=== PATIENT | female | born 1940 | race American Indian/Alaskan Native ===

== ENCOUNTER 2019-02-10 09:56 | Inpatient (IN) | payer MEDICARE, OTHER ==
[2019-02-10] MEDS ORDERED: Ondansetron 4 MG/2 ML SDV IVPUSH PRN (15:38)
[2019-02-10] MEDS ORDERED: Albuterol 0.083% 2.5 MG/3 ML Neb Soln NEB PRN (15:43)
--- NOTE | 2019-02-10 15:57 | PCM.HP ---
H&P History of Present Illness - General Date of Service: 02/10/19 Admit Problem/Dx: Admission Diagnosis/Problem Admission Diagnosis/Problem Debility - History of Present Illness Initial Comments - Free Text/Narative: Mrs. Winchester is a 78-year-old female with past medical history significant for chronic obstructive pulmonary disease on 2 L NC at baseline, chronic hypoxic respiratory failure, chronic tobacco abuse, history of hypertension, cerebral aneurysmal repair and history of GI bleed, presented to [facility] on with acute encephalopathic state with underlying acute hypoxic and hypercapnic respiratory failure and acute COPD exacerbation with mucus plugging. Patient was initially in respiratory failure requiring intubation. She is extubated on 02/06/2019. Blood Cultures were negative. Sputum cultures were positive for stenotrophomonas maltophilia, and respiratory viral panel was positive for parainfluenza 3. Patient had CTA of the chest on admission that showed no pulmonary embolism, it showed emphysema, large regional mucus plugging in the right lower lobe bronchus extending into the bronchials in the right lower lobe, mild nodular infiltrate in the right lower lobe with small pleural effusion, focal region of bronchiectasis in the lungs, biapical scarring. CT humerus showed comminuted multipart fracture of the proximal right humerus, loose bodies in the joint but no evidence of dislocation, small shoulder joint effusion, with potential superimposed hemarthrosis, no separate hematoma fluid collection, no other fractures. She was seen by orthopedics, and continuation of sling and removal of sling few times per day for elbow ROM with plan for telemed visit in 2 weeks. On interview, patient only complained that is at her baseline. She said that she has pain in her right arm if she moved a certain way but usually it doesn't hurt. Right Arm Pain Score (Numeric/FACES): 6 - Related Data Allergies/Adverse Reactions: Allergies Allergy/AdvReac Type Severity Reaction Status Date / Time No Known Allergies Allergy Verified 02/10/19 11:42 Home Medications: Home Meds Albuterol Sulfate 2.5 mg NEB Q4H PRN 02/10/19 [History] Albuterol/Ipratropium [DuoNeb 3.0-0.5 MG/3 ML] 3 ml NEB TID 02/10/19 [History] Alendronate Sodium [Fosamax] 70 mg PO WEEKLY 02/10/19 [History] Amoxicillin/Clavulanate K [Augmentin 500-125 MG] 1 tab PO BID 02/10/19 [History] Budesonide [Pulmicort] 2 ml NEB BID 02/10/19 [History] Calcium Carbonate/Vitamin D3 [Calcium 250+D] 1 tab PO DAILY 02/10/19 [History] Losartan [Cozaar] 50 mg PO DAILY 02/10/19 [History] Megestrol [Megace] 40 mg PO QID 02/10/19 [History] Melatonin 6 mg PO BEDTIME PRN 02/10/19 [History] Meloxicam [Mobic] 15 mg PO DAILY 02/10/19 [History] Multivit-Min/FA/Lycopene/Lut [Centrum Silver Tablet] 1 tab PO DAILY 02/10/19 [ History] Oxybutynin 5 mg PO TID 02/10/19 [History] Pantoprazole Sodium [Protonix] 40 mg PO DAILY 02/10/19 [History] Simethicone 80 mg PO TID PRN 02/10/19 [History] amLODIPine [Norvasc] 5 mg PO DAILY 02/10/19 [History] Past Medical History Cardiovascular History: Reports: Hypertension Respiratory History: Reports: COPD Gastrointestinal History: Reports: GERD Musculoskeletal History: Reports: Arthritis, Osteoarthritis Neurological History: Reports: Other (See Below) Other Neuro History: aneurysm Hematologic History: Reports: Anemia, Blood Transfusion(s) - Past Surgical History HEENT Surgical History: Reports: None Respiratory Surgical History: Reports: None GI Surgical History: Reports: Cholecystectomy Musculoskeletal Surgical History: Reports: Hip Replacement Other Musculoskeletal Surgeries/Procedures:: left hip replacement Social & Family History - Family History Family Medical History: Noncontributory - Tobacco Use Smoking Status *Q: Current Every Day Smoker Years of Tobacco use: 50 Packs/Tins Daily: 1 Second Hand Smoke Exposure: Yes - Caffeine Use Caffeine Use: Reports: Coffee - Recreational Drug Use Recreational Drug Use: No H&P Review of Systems - Review of Systems: Review Of Systems: ROS reveals no pertinent complaints other than HPI. Exam - Exam Exam: See Below - Vital Signs Weight: 34.019 kg - Exam Quality Assessment: Supplemental Oxygen (2L) General: Alert, Oriented Lungs: Clear to Auscultation, Normal Respiratory Effort Cardiovascular: Regular Rate, Regular Rhythm GI/Abdominal Exam: Normal Bowel Sounds, Soft Extremities: No Pedal Edema, Other (R arm in sling) Skin: Warm, Dry, Intact Neuro Extensive - Mental Status: Alert, Oriented x3, Normal Mood/Affect Psychiatric: Alert, Normal Affect Problem List Initiated/Reviewed/Updated: Yes Orders Last 24hrs: Active Orders 24 hr Category Date Time Status Patient Status [ADT] Routine ADT 02/10/19 15:38 Ordered Antiembolic Devices [RC] PER UNIT ROUTINE Care 02/10/19 15:43 Ordered May Shower [RC] ASDIRECTED Care 02/10/19 15:38 Ordered Oxygen Therapy [RC] PRN Care 02/10/19 15:38 Ordered Up With Assistance [RC] ASDIRECTED Care 02/10/19 15:38 Ordered VTE/DVT Education [RC] PER UNIT ROUTINE Care 02/10/19 15:38 Ordered Vital Signs [RC] QSHIFT Care 02/10/19 15:38 Ordered Regular Diet [DIET] Diet 02/10/19 Dinner Ordered CBC WITH AUTO DIFF [HEME] Routine Lab 02/10/19 15:38 Ordered COMPREHENSIVE METABOLIC PN,CMP [CHEM] Routine Lab 02/10/19 15:38 Ordered MAGNESIUM [CHEM] Routine Lab 02/10/19 15:38 Ordered PHOSPHORUS [CHEM] Routine Lab 02/10/19 15:38 Ordered Albuterol Sulfate Med 02/10/19 15:43 Ordered 2.5 mg NEB Q4H PRN Albuterol/Ipratropium [DuoNeb 3.0-0.5 MG/3 ML] Med 02/10/19 21:00 Ordered 3 ml NEB TID Alendronate Sodium [Fosamax] Med 02/10/19 15:45 Ordered 70 mg PO WEEKLY Amoxicillin/Clavulanate K [Augmentin 500 MG\125 MG] Med 02/10/19 21:00 Ordered 1 tab PO BID Budesonide [Pulmicort] Med 02/10/19 21:00 Ordered 2 ml NEB BID Calcium Carbonate/Vitamin D3 [Calcium 250+D] Med 02/11/19 09:00 Ordered 1 tab PO DAILY Heparin Sodium Med 02/10/19 22:00 Ordered 5,000 units SUBCUT Q8HR Losartan [Cozaar] Med 02/11/19 09:00 Ordered 50 mg PO DAILY Megestrol [Megace] Med 02/10/19 17:00 Ordered 40 mg PO QID Melatonin Med 02/10/19 15:43 Ordered 6 mg PO BEDTIME PRN Meloxicam [Mobic] Med 02/11/19 09:00 Ordered 15 mg PO DAILY Multivit-Min/FA/Lycopene/Lut [Centrum Silver Tablet] Med 02/11/19 09:00 Ordered 1 tab PO DAILY Ondansetron [Zofran] Med 02/10/19 15:38 Ordered 4 mg IVPUSH Q4H PRN Oxybutynin Med 02/10/19 21:00 Ordered 5 mg PO TID Pantoprazole [ProTONIX] Med 02/11/19 09:00 Ordered 40 mg PO DAILY Simethicone Med 02/10/19 15:43 Ordered 80 mg PO TID PRN amLODIPine [Norvasc] Med 02/11/19 09:00 Ordered 5 mg PO DAILY oxyCODONE Med 02/10/19 15:38 Ordered 5 mg PO Q4H PRN Sequential Compression Device [OM.PC] Per Unit Routine Oth 02/10/19 15:41 Ordered Resuscitation Status Routine Resus Stat 02/10/19 15:38 Ordered Assessment/Plan Comment:: Mrs. Winchester is a 78-year-old female with past medical history significant for chronic obstructive pulmonary disease on 2 L NC at baseline, chronic hypoxic respiratory failure, chronic tobacco abuse, history of hypertension, cerebral aneurysmal repair and history of GI bleed who presented to Swing bed due to debility for strengthening. Debility PT/OT COPD Chronically on 2 L nasal cannula Continue home inhalers Continue Augmentin for 7 days Hypertension Continue home medications Tobacco abuse Provide patient with nicotine patch Right humeral fracture Continue with sling She should come out of sling a few times per day for elbow ROM Patient needs to follow up with orthopedics over telemedicine 2 weeks from Continue Tylenol Add oxycodone for severe pain DVT prophylaxis sc heparin
[2019-02-10] MEDS: Acetaminophen 325 MG Tab PO PRN ×2 (16:49→20:26)
[2019-02-10 17:13] LABS: ANION GAP 13.5; CHLORIDE,CL 90 mmol/L (101-111); SODIUM,NA 133 mmol/L (135-145)
[2019-02-10] MEDS: oxyCODONE 5 MG Tab PO PRN (19:50)
[2019-02-10] MEDS: Budesonide 0.5 MG/2 ML Neb Susp NEB SCH (20:26)
[2019-02-10] MEDS: Amoxicillin/Clavulanate K 500-125 MG Tab PO SCH (20:26)
[2019-02-10] MEDS: Melatonin 3 MG Tab PO PRN (20:27)
[2019-02-10] MEDS: Megestrol 40 MG Tab PO SCH (20:28)
[2019-02-10] MEDS: Oxybutynin 5 MG Tab PO SCH (20:28)
[2019-02-10] MEDS: Albuterol/Ipratropium 3.0-0.5 MG/3 ML Neb Soln NEB SCH (21:00)
[2019-02-10] MEDS: Heparin Sodium 5,000 Units/ML Vial SUBCUT SCH (22:28)
[2019-02-11] MEDS: Heparin Sodium 5,000 Units/ML Vial SUBCUT SCH ×3 (05:22→22:17)
[2019-02-11] MEDS: Pantoprazole 40 MG Tab.CR PO SCH (05:26)
[2019-02-11] MEDS: Albuterol/Ipratropium 3.0-0.5 MG/3 ML Neb Soln NEB SCH ×3 (07:20→22:17)
[2019-02-11] MEDS: Budesonide 0.5 MG/2 ML Neb Susp NEB SCH ×3 (07:22→22:17)
[2019-02-11] MEDS: Amoxicillin/Clavulanate K 500-125 MG Tab PO SCH ×2 (08:38→22:13)
[2019-02-11] MEDS: Losartan 50 MG Tab PO SCH (08:39)
[2019-02-11] MEDS: Oxybutynin 5 MG Tab PO SCH ×3 (08:39→22:12)
[2019-02-11] MEDS: amLODIPine 5 MG Tab PO SCH (08:40)
[2019-02-11] MEDS: Acetaminophen 325 MG Tab PO PRN ×2 (08:40→23:39)
[2019-02-11] MEDS: Megestrol 40 MG Tab PO SCH ×4 (08:42→22:12)
[2019-02-11] MEDS: Nicotine 14 MG/24 Hr Patch TRDERM SCH (08:43)
[2019-02-11] MEDS: Check NICOTINE Patch TRDERM SCH (08:45)
[2019-02-11] MEDS ORDERED: Calcium Carbonate/Vitamin D3 1250 MG-200 Unit Tab PO SCH (09:00)
[2019-02-11] MEDS: Calcium Carbonate/Vitamin D3 1250 MG-200 Unit Tab PO SCH (12:52)
[2019-02-11] MEDS: Melatonin 3 MG Tab PO PRN (23:40)
[2019-02-12] MEDS: Heparin Sodium 5,000 Units/ML Vial SUBCUT SCH (06:28)
[2019-02-12] MEDS: Pantoprazole 40 MG Tab.CR PO SCH (06:29)
--- NOTE | 2019-02-12 08:59 | PCM.PN ---
- General Info Date of Service: 02/12/19 Admission Dx/Problem (Free Text): Admission Diagnosis/Problem Admission Diagnosis/Problem Debility Subjective Update: The patient developed urinary retention overnight. She was scanned multiple times, and urine residual was over 800. She was straight cathetered X1. Patient said that she went this morning, and urinated a significant amount. She is also on oxybutynin. - Review of Systems General: Reports: No Symptoms Pulmonary: Reports: No Symptoms Cardiovascular: Reports: No Symptoms Gastrointestinal: Reports: No Symptoms - Patient Data Vitals - Most Recent: Last Vital Signs Temp 36.9 C 02/12/19 07:00 Pulse 94 02/12/19 07:00 Resp 20 02/12/19 07:00 BP 193/84 H 02/12/19 07:00 Pulse Ox 100 02/12/19 07:00 Weight - Most Recent: 34.019 kg I&O - Last 24 Hours: Intake & Output 02/11/19 02/12/19 02/12/19 22:59 06:59 14:59 Intake Total 100 Output Total 750 Balance 100 -750 Med Orders - Current: Current Medications Acetaminophen (Tylenol) 650 mg PO Q4H PRN PRN Reason: Pain Last Admin: 02/11/19 23:39 Dose: 650 mg Albuterol (Proventil Neb Soln) 2.5 mg NEB Q4H PRN PRN Reason: Wheezing Albuterol/Ipratropium (Duoneb 3.0-0.5 Mg/3 Ml) 3 ml NEB TIDRT [facility] Last Admin: 02/11/19 22:17 Dose: 3 ml Amlodipine Besylate (Norvasc) 5 mg PO DAILY [facility] Last Admin: 02/11/19 08:40 Dose: 5 mg Amoxicillin/Clavulanate Potassium (Augmentin 500 Mg\125 Mg) 1 tab PO BID [facility] Stop: 02/17/19 09:01 Last Admin: 02/11/19 22:13 Dose: 1 tab Budesonide (Pulmicort) 0.5 mg NEB BID [facility] Last Admin: 02/11/19 22:17 Dose: 0.5 mg Calcium Carbonate (Calcium Carbonate/Vitamin D 1250 Mg-200 Unit) 1 tab PO DAILY [facility] Last Admin: 02/11/19 12:52 Dose: Not Given Heparin Sodium (Porcine) (Heparin Sodium) 5,000 units SUBCUT Q8HR [facility] Last Admin: 02/12/19 06:28 Dose: Not Given Losartan Potassium (Cozaar) 50 mg PO DAILY [facility] Last Admin: 02/11/19 08:39 Dose: 50 mg Megestrol Acetate (Megace) 40 mg PO QID [facility] Last Admin: 02/11/19 22:12 Dose: 40 mg Melatonin (Melatonin) 6 mg PO BEDTIME PRN PRN Reason: Sleep Last Admin: 02/11/19 23:40 Dose: 6 mg Miscellaneous Information (Check Patch) 1 ea TRDERM DAILY [facility] Last Admin: 02/11/19 08:45 Dose: 1 ea Nicotine (Habitrol) 14 mg TRDERM DAILY [facility] Last Admin: 02/11/19 08:43 Dose: 14 mg Alendronate Sodium [ (Fosamax] 70mg) 70 mg PO Q7D [facility] Ondansetron HCl (Zofran) 4 mg IVPUSH Q4H PRN PRN Reason: Nausea/Vomiting Oxycodone HCl (Oxycodone) 5 mg PO Q4H PRN PRN Reason: Pain (moderate 4-6) Last Admin: 02/10/19 19:50 Dose: 5 mg Pantoprazole Sodium (Protonix) 40 mg PO ACBREAKFAST [facility] Last Admin: 02/12/19 06:29 Dose: 40 mg Patient's Own MedicationMobic 15 Mg 1 each PO DAILY [facility] Simethicone (Simethicone) 80 mg PO TID PRN PRN Reason: Gas Discontinued Medications Calcium Carbonate (Calcium Carbonate/Vitamin D 1250 Mg-200 Unit) 1 tab PO DAILY [facility] Last Admin: 02/11/19 08:38 Dose: 1 tab Oxybutynin Chloride (Oxybutynin) 5 mg PO TID [facility] Last Admin: 02/11/19 22:12 Dose: 5 mg - Exam General: Alert, Oriented Lungs: Clear to Auscultation, Normal Respiratory Effort GI/Abdominal Exam: Normal Bowel Sounds, Soft Extremities: Normal Inspection Skin: Warm, Dry, Intact Neurological: No New Focal Deficit Psy/Mental Status: Alert, Normal Affect, Normal Mood - Problem List Review Problem List Initiated/Reviewed/Updated: Yes - My Orders Last 24 Hours: My Active Orders 02/11/19 09:00 Calcium Carbonate/Vitamin D3 [Calcium Carbonate/Vitamin D 1250 MG-200 Unit] 1 tab PO DAILY Check Patch 1 ea TRDERM DAILY Losartan [Cozaar] 50 mg PO DAILY Nicotine [Habitrol] 14 mg TRDERM DAILY amLODIPine [Norvasc] 5 mg PO DAILY 02/11/19 15:00 Dietary Supplements [RC] DAILY 02/11/19 23:32 Urinary Catheter Assessment [RC] ASDIRECTED 02/12/19 08:50 Communication Order [RC] DAILY 02/12/19 09:00 Patient's Own Medication [Ptom] 1 each PO DAILY 02/12/19 23:45 Insert Urinary Catheter [OM.PC] Q24H - Plan Plan:: Mrs. Winchester is a 78-year-old female with past medical history significant for chronic obstructive pulmonary disease on 2 L NC at baseline, chronic hypoxic respiratory failure, chronic tobacco abuse, history of hypertension, cerebral aneurysmal repair and history of GI bleed who presented to Swing bed due to debility for strengthening. Debility PT/OT COPD Chronically on 2 L nasal cannula Continue home inhalers Continue Augmentin for 7 days Hypertension Continue home medications Tobacco abuse Provide patient with nicotine patch Urinary retention Will discontinue oxybutynin We'll schedule bladder scans every 6h, straight catheter if patient is over 700 mL She continues to retain urine, we'll place Guillen tomorrow Right humeral fracture Continue with sling She should come out of sling a few times per day for elbow ROM Patient needs to follow up with orthopedics over telemedicine 2 weeks from Continue Tylenol Add oxycodone for severe pain DVT prophylaxis switched to Lovenox
[2019-02-12] MEDS: Check NICOTINE Patch TRDERM SCH (09:10)
[2019-02-12] MEDS: Amoxicillin/Clavulanate K 500-125 MG Tab PO SCH ×2 (09:15→21:13)
[2019-02-12] MEDS: Calcium Carbonate/Vitamin D3 1250 MG-200 Unit Tab PO SCH (09:15)
[2019-02-12] MEDS: Losartan 50 MG Tab PO SCH (09:16)
[2019-02-12] MEDS: amLODIPine 5 MG Tab PO SCH (09:21)
[2019-02-12] MEDS: Megestrol 40 MG Tab PO SCH ×4 (09:22→21:13)
[2019-02-12] MEDS: Nicotine 14 MG/24 Hr Patch TRDERM SCH (09:22)
[2019-02-12] MEDS: Albuterol/Ipratropium 3.0-0.5 MG/3 ML Neb Soln NEB SCH ×2 (11:29→21:11)
[2019-02-12] MEDS: Budesonide 0.5 MG/2 ML Neb Susp NEB SCH ×2 (11:29→21:14)
[2019-02-12] MEDS: MOBIC 15 MG PO SCH (12:07)
[2019-02-12] MEDS: oxyCODONE 5 MG Tab PO PRN (12:09)
[2019-02-12] MEDS: Enoxaparin 40 MG/0.4 ML Syringe SUBCUT SCH (12:12)
[2019-02-12] MEDS: Melatonin 3 MG Tab PO PRN (21:22)
[2019-02-12] MEDS: Acetaminophen 325 MG Tab PO PRN (21:22)
[2019-02-13] MEDS: oxyCODONE 5 MG Tab PO PRN ×3 (02:24→20:13)
[2019-02-13] MEDS: Pantoprazole 40 MG Tab.CR PO SCH (05:51)
[2019-02-13] MEDS: Albuterol/Ipratropium 3.0-0.5 MG/3 ML Neb Soln NEB SCH ×4 (08:23→21:59)
[2019-02-13] MEDS: Budesonide 0.5 MG/2 ML Neb Susp NEB SCH ×3 (09:17→21:59)
[2019-02-13] MEDS: Calcium Carbonate/Vitamin D3 1250 MG-200 Unit Tab PO SCH (09:17)
[2019-02-13] MEDS: amLODIPine 5 MG Tab PO SCH (09:18)
[2019-02-13] MEDS: Losartan 50 MG Tab PO SCH (09:18)
[2019-02-13] MEDS: Amoxicillin/Clavulanate K 500-125 MG Tab PO SCH ×2 (09:18→21:58)
[2019-02-13] MEDS: Check NICOTINE Patch TRDERM SCH (09:19)
[2019-02-13] MEDS: Megestrol 40 MG Tab PO SCH ×4 (09:19→21:58)
[2019-02-13] MEDS: Nicotine 14 MG/24 Hr Patch TRDERM SCH (09:20)
[2019-02-13] MEDS: Enoxaparin 40 MG/0.4 ML Syringe SUBCUT SCH (09:22)
[2019-02-13] MEDS: MOBIC 15 MG PO SCH (09:24)
[2019-02-13] MEDS: Melatonin 3 MG Tab PO PRN (23:13)
[2019-02-13] MEDS: Acetaminophen 325 MG Tab PO PRN (23:18)
[2019-02-14] MEDS: Pantoprazole 40 MG Tab.CR PO SCH (07:28)
[2019-02-14] MEDS: Albuterol/Ipratropium 3.0-0.5 MG/3 ML Neb Soln NEB SCH ×3 (07:34→20:55)
[2019-02-14] MEDS: Budesonide 0.5 MG/2 ML Neb Susp NEB SCH ×2 (07:34→20:55)
[2019-02-14] MEDS: Amoxicillin/Clavulanate K 500-125 MG Tab PO SCH ×2 (09:05→20:55)
[2019-02-14] MEDS: Losartan 50 MG Tab PO SCH (09:05)
[2019-02-14] MEDS: amLODIPine 5 MG Tab PO SCH (09:06)
[2019-02-14] MEDS: Megestrol 40 MG Tab PO SCH ×4 (09:06→20:55)
[2019-02-14] MEDS: Nicotine 14 MG/24 Hr Patch TRDERM SCH (09:06)
[2019-02-14] MEDS: Calcium Carbonate/Vitamin D3 1250 MG-200 Unit Tab PO SCH (09:06)
[2019-02-14] MEDS: Enoxaparin 40 MG/0.4 ML Syringe SUBCUT SCH (09:07)
[2019-02-14] MEDS: Check NICOTINE Patch TRDERM SCH (09:16)
--- NOTE | 2019-02-14 09:42 | PCM.PN ---
- General Info Date of Service: 02/14/19 Admission Dx/Problem (Free Text): Admission Diagnosis/Problem Admission Diagnosis/Problem Debility Subjective Update: The patient was adamant about leaving the hospital today. She said that she was willing to sign herself out AMA. Discussed with patient that she would not be able to take care of herself. Patient later changed her mind. She denied any other complaints. - Review of Systems Systems Review Comment:: not obtained - Patient Data Vitals - Most Recent: Last Vital Signs Temp 36.8 C 02/14/19 08:13 Pulse 97 02/14/19 08:13 Resp 20 02/14/19 08:13 BP 138/55 L 02/14/19 09:06 Pulse Ox 93 L 02/14/19 08:13 Weight - Most Recent: 34.019 kg I&O - Last 24 Hours: Intake & Output 02/13/19 02/14/19 02/14/19 22:59 06:59 14:59 Intake Total 250 Output Total 600 650 Balance -600 -400 Med Orders - Current: Current Medications Acetaminophen (Tylenol) 650 mg PO Q4H PRN PRN Reason: Pain Last Admin: 02/13/19 23:18 Dose: 650 mg Albuterol (Proventil Neb Soln) 2.5 mg NEB Q4H PRN PRN Reason: Wheezing Albuterol/Ipratropium (Duoneb 3.0-0.5 Mg/3 Ml) 3 ml NEB TIDRT [facility] Last Admin: 02/14/19 07:34 Dose: 3 ml Amlodipine Besylate (Norvasc) 5 mg PO DAILY [facility] Last Admin: 02/14/19 09:06 Dose: 5 mg Amoxicillin/Clavulanate Potassium (Augmentin 500 Mg\125 Mg) 1 tab PO BID [facility] Stop: 02/17/19 09:01 Last Admin: 02/14/19 09:05 Dose: 1 tab Budesonide (Pulmicort) 0.5 mg NEB BID@0700,2100 [facility] Last Admin: 02/14/19 07:34 Dose: 0.5 mg Calcium Carbonate (Calcium Carbonate/Vitamin D 1250 Mg-200 Unit) 1 tab PO DAILY [facility] Last Admin: 02/14/19 09:06 Dose: 1 tab Enoxaparin Sodium (Lovenox) 40 mg SUBCUT DAILY [facility] Last Admin: 02/14/19 09:07 Dose: 40 mg Losartan Potassium (Cozaar) 50 mg PO DAILY [facility] Last Admin: 02/14/19 09:05 Dose: 50 mg Megestrol Acetate (Megace) 40 mg PO QID [facility] Last Admin: 02/14/19 09:06 Dose: 40 mg Melatonin (Melatonin) 6 mg PO BEDTIME PRN PRN Reason: Sleep Last Admin: 02/13/19 23:13 Dose: 6 mg Miscellaneous Information (Check Patch) 1 ea TRDERM DAILY [facility] Last Admin: 02/14/19 09:16 Dose: 1 ea Nicotine (Habitrol) 14 mg TRDERM DAILY [facility] Last Admin: 02/14/19 09:06 Dose: 14 mg Alendronate Sodium [ Fosamax] 70mgOwn Med 70 mg PO Q7D [facility] Ondansetron HCl (Zofran) 4 mg IVPUSH Q4H PRN PRN Reason: Nausea/Vomiting Oxycodone HCl (Oxycodone) 5 mg PO Q4H PRN PRN Reason: Pain (moderate 4-6) Last Admin: 02/13/19 20:13 Dose: 5 mg Pantoprazole Sodium (Protonix) 40 mg PO ACBREAKFAST [facility] Last Admin: 02/14/19 07:28 Dose: 40 mg Patient's Own MedicationMobic 15 Mg 1 each PO DAILY [facility] Last Admin: 02/13/19 09:24 Dose: 1 each Simethicone (Simethicone) 80 mg PO TID PRN PRN Reason: Gas Discontinued Medications Budesonide (Pulmicort) 0.5 mg NEB BID [facility] Last Admin: 02/13/19 09:26 Dose: Not Given Calcium Carbonate (Calcium Carbonate/Vitamin D 1250 Mg-200 Unit) 1 tab PO DAILY [facility] Last Admin: 02/11/19 08:38 Dose: 1 tab Heparin Sodium (Porcine) (Heparin Sodium) 5,000 units SUBCUT Q8HR [facility] Last Admin: 02/12/19 06:28 Dose: Not Given Oxybutynin Chloride (Oxybutynin) 5 mg PO TID [facility] Last Admin: 02/11/19 22:12 Dose: 5 mg - Exam General: Alert, Oriented Lungs: Clear to Auscultation, Normal Respiratory Effort Cardiovascular: Regular Rate, Regular Rhythm GI/Abdominal Exam: Normal Bowel Sounds, Soft, Non-Tender, No Abnormal Bruit Extremities: No Pedal Edema Skin: Warm, Dry, Intact Neurological: No New Focal Deficit Psy/Mental Status: Alert, Normal Affect, Normal Mood - Problem List Review Problem List Initiated/Reviewed/Updated: Yes - My Orders Last 24 Hours: My Active Orders 02/13/19 09:15 Budesonide [Pulmicort] 0.5 mg NEB BID@0700,2100 02/13/19 12:18 Urinary Catheter Assessment [RC] 08,02/13/19 12:30 Insert Guillen Catheter [Insert Urinary Catheter] [OM.PC] Q24H 02/17/19 07:00 Alendronate Sodium [Fosamax] 70 mg PO Q7D - Plan Plan:: Mrs. Winchester is a 78-year-old female with past medical history significant for chronic obstructive pulmonary disease on 2 L NC at baseline, chronic hypoxic respiratory failure, chronic tobacco abuse, history of hypertension, cerebral aneurysmal repair and history of GI bleed who presented to Swing bed due to debility for strengthening. Debility PT/OT COPD Chronically on 2 L nasal cannula Continue home inhalers Continue Augmentin for 7 days Hypertension Continue home medications Tobacco abuse Provide patient with nicotine patch Urinary retention continue Guillen care Patient will need follow-up with urology on discharge Right humeral fracture Continue with sling She should come out of sling a few times per day for elbow ROM Patient needs to follow up with orthopedics over telemedicine 2 weeks from Continue Tylenol Add oxycodone for severe pain DVT prophylaxis Lovenox
[2019-02-14] MEDS: oxyCODONE 5 MG Tab PO PRN ×2 (11:40→15:50)
[2019-02-14] MEDS: MOBIC 15 MG PO SCH (11:41)
[2019-02-14] MEDS: Acetaminophen 325 MG Tab PO PRN (14:54)
[2019-02-14] MEDS: Melatonin 3 MG Tab PO PRN (20:55)
[2019-02-15] MEDS: oxyCODONE 5 MG Tab PO PRN ×3 (01:07→18:06)
[2019-02-15] MEDS: Acetaminophen 325 MG Tab PO PRN ×2 (03:57→21:32)
[2019-02-15] MEDS: Pantoprazole 40 MG Tab.CR PO SCH (06:13)
[2019-02-15] MEDS: Albuterol/Ipratropium 3.0-0.5 MG/3 ML Neb Soln NEB SCH ×3 (07:54→21:30)
[2019-02-15] MEDS: Budesonide 0.5 MG/2 ML Neb Susp NEB SCH ×2 (07:54→21:30)
[2019-02-15] MEDS: Losartan 50 MG Tab PO SCH (08:14)
[2019-02-15] MEDS: Calcium Carbonate/Vitamin D3 1250 MG-200 Unit Tab PO SCH (08:14)
[2019-02-15] MEDS: amLODIPine 5 MG Tab PO SCH (08:15)
[2019-02-15] MEDS: Megestrol 40 MG Tab PO SCH ×4 (08:15→21:31)
[2019-02-15] MEDS: Nicotine 14 MG/24 Hr Patch TRDERM SCH (08:15)
[2019-02-15] MEDS: Enoxaparin 40 MG/0.4 ML Syringe SUBCUT SCH (08:15)
[2019-02-15] MEDS: Amoxicillin/Clavulanate K 500-125 MG Tab PO SCH ×2 (08:15→21:31)
[2019-02-15] MEDS: Check NICOTINE Patch TRDERM SCH (08:25)
[2019-02-15] MEDS: MOBIC 15 MG PO SCH (08:26)
[2019-02-15] MEDS ORDERED: Benzocaine/Cetylpyridinium/Menthol Lozenge MUCMEM PRN (11:08)
[2019-02-15] MEDS: Nicotine 21 MG/24 Hr Patch TRDERM SCH (13:15)
[2019-02-15] MEDS: Nystatin Susp 100,000 Unit/ML 5 ML UD Cup PO SCH ×3 (13:15→21:31)
[2019-02-15] MEDS: Melatonin 3 MG Tab PO PRN (21:31)
[2019-02-15] MEDS: Simethicone 80 MG Tab.Chew PO PRN (22:34)
[2019-02-16] MEDS: Pantoprazole 40 MG Tab.CR PO SCH (06:11)
[2019-02-16] MEDS: Albuterol/Ipratropium 3.0-0.5 MG/3 ML Neb Soln NEB SCH (07:13)
[2019-02-16] MEDS: Budesonide 0.5 MG/2 ML Neb Susp NEB SCH (07:13)
[2019-02-16] MEDS: Acetaminophen 325 MG Tab PO PRN (08:09)
[2019-02-16] MEDS: Enoxaparin 40 MG/0.4 ML Syringe SUBCUT SCH (08:50)
[2019-02-16] MEDS: amLODIPine 5 MG Tab PO SCH (08:50)
[2019-02-16] MEDS: Amoxicillin/Clavulanate K 500-125 MG Tab PO SCH (08:50)
[2019-02-16] MEDS: Simethicone 80 MG Tab.Chew PO PRN (08:50)
[2019-02-16] MEDS: Calcium Carbonate/Vitamin D3 1250 MG-200 Unit Tab PO SCH (08:50)
[2019-02-16] MEDS: Losartan 50 MG Tab PO SCH (08:50)
[2019-02-16] MEDS: Megestrol 40 MG Tab PO SCH ×2 (08:50→12:47)
[2019-02-16] MEDS: Nystatin Susp 100,000 Unit/ML 5 ML UD Cup PO SCH ×2 (08:51→12:49)
[2019-02-16] MEDS: Nicotine 21 MG/24 Hr Patch TRDERM SCH (08:53)
[2019-02-16] MEDS: Check NICOTINE Patch TRDERM SCH (09:50)
[2019-02-16] MEDS: MOBIC 15 MG PO SCH (09:50)
--- NOTE | 2019-02-16 13:26 | PCM.DCSUM1 ---
Discharge Summary - Hospital Course Free Text/Narrative:: Mrs. Winchester is a 78-year-old female with past medical history significant for chronic obstructive pulmonary disease on 2 L NC at baseline, chronic hypoxic respiratory failure, chronic tobacco abuse, history of hypertension, cerebral aneurysmal repair and history of GI bleed, presented to [facility] on with acute encephalopathic state with underlying acute hypoxic and hypercapnic respiratory failure and acute COPD exacerbation with mucus plugging. Patient was initially in respiratory failure requiring intubation. She is extubated on 02/06/2019. Blood Cultures were negative. Sputum cultures were positive for stenotrophomonas maltophilia, and respiratory viral panel was positive for parainfluenza 3. Patient had CTA of the chest on admission that showed no pulmonary embolism, it showed emphysema, large regional mucus plugging in the right lower lobe bronchus extending into the bronchials in the right lower lobe, mild nodular infiltrate in the right lower lobe with small pleural effusion, focal region of bronchiectasis in the lungs, biapical scarring. CT humerus showed comminuted multipart fracture of the proximal right humerus, loose bodies in the joint but no evidence of dislocation, small shoulder joint effusion, with potential superimposed hemarthrosis, no separate hematoma fluid collection, no other fractures. She was seen by orthopedics, and continuation of sling and removal of sling few times per day for elbow ROM with plan for telemed visit in 2 weeks from her discharge. she was in swing bed for deconditioning. patient was resistant to staying for therapy and despite PT/OT feeling that she was not ready to leave, she decided to leave regardless. she also developed urinary retention when she was here and she required placement of tinajero. she will need referral to urology by her PCP for voiding trial and possible removal of tinajero. she was discharged in stable condition. Diagnosis: Stroke: No - Discharge Data Discharge Date: 02/16/19 Discharge Disposition: Home, Self-Care 01 Condition: Fair - Patient Summary/Data Consults: Consultations 02/12/19 09:32 Consult to Occupational Therapy [OT Evaluation and Treatment] [CONS] Routine PT Evaluation and Treatment [CONS] Routine - Discharge Plan *PRESCRIPTION DRUG MONITORING PROGRAM REVIEWED*: No *COPY OF PRESCRIPTION DRUG MONITORING REPORT IN PATIENT MICKEY: No Home Medications: Home Meds Albuterol Sulfate 2.5 mg NEB Q4H PRN 02/10/19 [History] Albuterol/Ipratropium [DuoNeb 3.0-0.5 MG/3 ML] 3 ml NEB TID 02/10/19 [History] Alendronate Sodium [Fosamax] 70 mg PO WEEKLY 02/10/19 [History] Budesonide [Pulmicort] 2 ml NEB BID 02/10/19 [History] Calcium Carbonate/Vitamin D3 [Calcium 250+D] 1 tab PO DAILY 02/10/19 [History] Losartan [Cozaar] 50 mg PO DAILY 02/10/19 [History] Megestrol [Megace] 40 mg PO QID 02/10/19 [History] Melatonin 6 mg PO BEDTIME PRN 02/10/19 [History] Meloxicam [Mobic] 15 mg PO DAILY 02/10/19 [History] Multivit-Min/FA/Lycopene/Lut [Centrum Silver Tablet] 1 tab PO DAILY 02/10/19 [ History] Pantoprazole Sodium [Protonix] 40 mg PO DAILY 02/10/19 [History] Simethicone 80 mg PO TID PRN 02/10/19 [History] amLODIPine [Norvasc] 5 mg PO DAILY 02/10/19 [History] Patient Handouts: Fall Prevention in the Home, Adult, [id number], Indwelling Urinary Catheter Care, Adult, [id number] - Discharge Summary/Plan Comment DC Time >30 min.: Yes - General Info Date of Service: 02/16/19 - Patient Data Vitals - Most Recent: Last Vital Signs Temp 36.5 C 02/15/19 16:19 Pulse 86 02/15/19 16:19 Resp 20 02/15/19 16:19 BP 135/51 L 02/16/19 08:50 Pulse Ox 98 02/16/19 07:14 Weight - Most Recent: 35.04 kg I&O - Last 24 hours: Intake & Output 02/15/19 02/16/19 02/16/19 22:59 06:59 14:59 Intake Total 350 250 440 Output Total 550 600 600 Balance -200 -350 -160 Med Orders - Current: Current Medications Acetaminophen (Tylenol) 650 mg PO Q4H PRN PRN Reason: Pain Last Admin: 02/16/19 08:09 Dose: 650 mg Albuterol (Proventil Neb Soln) 2.5 mg NEB Q4H PRN PRN Reason: Wheezing Albuterol/Ipratropium (Duoneb 3.0-0.5 Mg/3 Ml) 3 ml NEB TIDRT [facility] Last Admin: 02/16/19 07:13 Dose: 3 ml Amlodipine Besylate (Norvasc) 5 mg PO DAILY [facility] Last Admin: 02/16/19 08:50 Dose: 5 mg Amoxicillin/Clavulanate Potassium (Augmentin 500 Mg\125 Mg) 1 tab PO BID [facility] Stop: 02/17/19 09:01 Last Admin: 02/16/19 08:50 Dose: 1 tab Benzocaine/Menthol (Cepacol Sore Throat) 1 lozenge MUCMEM 5XDAY PRN PRN Reason: Sore Throat Budesonide (Pulmicort) 0.5 mg NEB BID@0700,2100 [facility] Last Admin: 02/16/19 07:13 Dose: 0.5 mg Calcium Carbonate (Calcium Carbonate/Vitamin D 1250 Mg-200 Unit) 1 tab PO DAILY [facility] Last Admin: 02/16/19 08:50 Dose: 1 tab Enoxaparin Sodium (Lovenox) 40 mg SUBCUT DAILY [facility] Last Admin: 02/16/19 08:50 Dose: 40 mg Losartan Potassium (Cozaar) 50 mg PO DAILY [facility] Last Admin: 02/16/19 08:50 Dose: 50 mg Megestrol Acetate (Megace) 40 mg PO QID [facility] Last Admin: 02/16/19 12:47 Dose: 40 mg Melatonin (Melatonin) 6 mg PO BEDTIME PRN PRN Reason: Sleep Last Admin: 02/15/19 21:31 Dose: 6 mg Miscellaneous Information (Check Patch) 1 ea TRDERM DAILY [facility] Last Admin: 02/16/19 09:50 Dose: 1 ea Nicotine (Habitrol) 21 mg TRDERM DAILY [facility] Last Admin: 02/16/19 08:53 Dose: 21 mg Alendronate Sodium [ Fosamax] 70mgOwn Med 70 mg PO Q7D [facility] Nystatin (Mycostatin) 5 ml PO QID [facility] Last Admin: 02/16/19 12:49 Dose: 5 ml Ondansetron HCl (Zofran) 4 mg IVPUSH Q4H PRN PRN Reason: Nausea/Vomiting Oxycodone HCl (Oxycodone) 5 mg PO Q4H PRN PRN Reason: Pain (moderate 4-6) Last Admin: 02/15/19 18:06 Dose: 5 mg Pantoprazole Sodium (Protonix) 40 mg PO ACBREAKFAST [facility] Last Admin: 02/16/19 06:11 Dose: 40 mg Patient's Own MedicationMobic 15 Mg 1 each PO DAILY [facility] Last Admin: 02/16/19 09:50 Dose: 1 each Simethicone (Simethicone) 80 mg PO TID PRN PRN Reason: Gas Last Admin: 02/16/19 08:50 Dose: 80 mg Discontinued Medications Budesonide (Pulmicort) 0.5 mg NEB BID [facility] Last Admin: 02/13/19 09:26 Dose: Not Given Calcium Carbonate (Calcium Carbonate/Vitamin D 1250 Mg-200 Unit) 1 tab PO DAILY [facility] Last Admin: 02/11/19 08:38 Dose: 1 tab Heparin Sodium (Porcine) (Heparin Sodium) 5,000 units SUBCUT Q8HR [facility] Last Admin: 02/12/19 06:28 Dose: Not Given Nicotine (Habitrol) 14 mg TRDERM DAILY [facility] Last Admin: 02/15/19 08:15 Dose: 14 mg Oxybutynin Chloride (Oxybutynin) 5 mg PO TID [facility] Last Admin: 02/11/19 22:12 Dose: 5 mg - Exam Quality Assessment: Reports: Supplemental Oxygen General: Reports: Alert, Oriented Lungs: Reports: Clear to Auscultation, Normal Respiratory Effort Cardiovascular: Reports: Regular Rate, Regular Rhythm GI/Abdominal Exam: Normal Bowel Sounds, Soft, Non-Tender Extremities: Other (R arm in sling) Skin: Reports: Warm, Dry, Intact Neurological: Reports: No New Focal Deficit Psy/Mental Status: Reports: Alert, Normal Affect, Normal Mood
[2019-02-17] MEDS ORDERED: ALENDRONATE SODIUM 70 MG PO SCH (07:00)
== END 2019-02-16 14:40 | disposition home or self-care (01) | DRG 948 ==
LOC: UNDOADMIN 09:56 → DL.MS 09:56 → UNDOADMIN 13:56 → DL.MS 13:56
PROVIDERS: ADMIT Internal Medicine; ATTEND Internal Medicine
DX: R53.81 Other malaise (principal); J44.1 Chronic obstructive pulmonary disease with (acute) exacerbation; I10 Essential (primary) hypertension; Z79.899 Other long term (current) drug therapy; K21.9 Gastro-esophageal reflux disease without esophagitis; M19.91 Primary osteoarthritis, unspecified site; Z96.642 Presence of left artificial hip joint; F17.210 Nicotine dependence, cigarettes, uncomplicated; R33.9 Retention of urine, unspecified; S42.301D Unspecified fracture of shaft of humerus, right arm, subsequent encounter for fracture with routine healing
CPT/HCPCS: 36415; 51701; 51702; 51703; 51798; 80053; 83735; 84100; 85025; 94640; 94760; 97110-GO; 97110-GP; 97116-GP; 97162-GP; 97166-GO; 97530-GO; A9270-GY; J1644; J1650; J7620-GY